=== PATIENT | male | born 1985 | race Caucasian/White ===

== ENCOUNTER 2019-04-27 04:47 | Emergency (ER) | payer SELFPAY ==
[~2019-04-27] VITALS: Ht 188 cm; Wt 102.1 kg
[~2019-04-27 04:47] MED LIST: NORCO 5-325 TA1 EACH PO
[2019-04-27] MEDS ORDERED: CYCLOBENZAPRINE10 MG PO (05:24)
== END 2019-04-27 05:40 | disposition home or self-care (01) ==
LOC: ED 04:47
DX: M54.5 Low back pain (principal); Z88.8 Allergy status to other drugs, medicaments and biological substances
CPT/HCPCS: 99283